=== PATIENT | female | born 1940 | race Caucasian/White ===

== ENCOUNTER 2017-10-30 13:35 | Inpatient (IN) | payer OTHER ==
[~2017-10-30] VITALS: Ht 157.5 cm; Wt 53.1 kg
--- NOTE | 2017-10-30 13:35 | NUR ---
[id number] FROM [facility] FOR SOB PRIOR TO START OF DIALYSIS ASA 162 GIVEN BY EMS. PT DENIES SOB NOW, DENIES CP. A/OX 2, BREATHING EVEN AND UNLABORED. NO DISTRESS NOTED. VITALS STABLE, ONLY TACHYCARDIC. SAFETY AND COMFORT MEASURES IN PLACE. AWAITING MD ORDERS.
--- NOTE | 2017-10-30 15:05 | NUR ---
NEW IV STARTED ON RAC, 20G. BLOOD DRAWN AND SENT TO LAB.
[2017-10-30 15:18] LABS: BASOPHILS % (AUTO) 0.2 % (0.0-2.0); EOSINOPHILS % (AUTO) 1.9 % (0.0-6.0); HEMATOCRIT 34 % (33-45); HEMOGLOBIN 11.5 g/dL (11.5-14.8); LYMPHOCYTES # (AUTO) 1.1 /CMM (0.8-4.8); LYMPHOCYTES % (AUTO) 16.1 % (20.0-44.0); MEAN CORPUSCULAR HEMOGLOBIN 28 PG (26.0-33.0); MEAN CORPUSCULAR HGB CONC 33 g/dl (31.0-36.0); MEAN CORPUSCULAR VOLUME 83 fL (82-100); MONOCYTES # (AUTO) 0.5 /CMM (0.1-1.30); NEUTROPHILS # (AUTO) 4.9 /CMM (1.8-8.9); NEUTROPHILS % (AUTO) 73.8 % (43.0-81.0); PLATELET COUNT (AUTO) 193 /CMM (150-450); RDW COEFFICIENT OF VARIATION 21.9 (11.5-15.0); RED BLOOD CELL COUNT(AUTO) 4.14 MIL/uL (4.0-5.2); WHITE BLOOD COUNT (AUTO) 6.6 K/uL (4.3-11.0)
[2017-10-30 15:31] LABS: CALCIUM, SERUM 9.7 mg/dL (8.5-10.1); CARBON DIOXIDE 25 mmol/L (21-32); CHLORIDE 104 mmol/L (98-107); CREATININE 1.3 mg/dL (0.6-1.3); GLUCOSE 107 mg/dL (74-106); POTASSIUM 5.5 mmol/L (3.5-5.1); SODIUM SERUM 137 mmol/L (136-145); UREA NITROGEN, BLOOD 18 mg/dL (7-18)
[2017-10-30 15:35] LABS: INR 0.97 (0.85-1.15)
[2017-10-30 15:36] LABS: ALANINE AMINOTRANSFERASE 18 U/L (12-78); ALBUMIN 2.9 g/dL (3.4-5.0); ALKALINE PHOSPHATASE 77 U/L (46-116); ASPARTATE AMINOTRANSFERASE 19 U/L (15-37); BILIRUBIN,DIRECT 0.2 mg/dL (0.0-0.2); BILIRUBIN,TOTAL 0.4 mg/dL (0.2-1.0); TOTAL PROTEIN, SERUM 7.4 g/dL (6.4-8.2)
[2017-10-30 15:38] LABS: TROPONIN I < 0.017 ng/mL (0.00-0.056)
[2017-10-30 15:58] LABS: MAGNESIUM 1.6 mg/dL (1.8-2.4); PHOSPHORUS 3.3 mg/dL (2.5-4.9)
[2017-10-30] MEDS ORDERED: SODIUM POLYSTYRENE SULFONATE 15 G/60 ML BOTTLE PO ONE (16:00)
[2017-10-30] MEDS ORDERED: INSULIN REGULAR, HUMAN 100 UNIT/ML 10 ML VIAL IV ONE (16:00)
[2017-10-30] MEDS ORDERED: DEXTROSE 50%-WATER 50 ML DISP.SYRIN IVP ONE (16:00)
[2017-10-30] MEDS ORDERED: ASPIRIN 81 MG TAB.CHEW PO ONE (16:00)
[2017-10-30] MEDS ORDERED: ASPIRIN 81 MG TAB.CHEW ONE (16:17)
[2017-10-30] MEDS ORDERED: SODIUM POLYSTYRENE SULFONATE 15 G/60 ML BOTTLE ONE (16:17)
[2017-10-30] MEDS ORDERED: DEXTROSE 50%-WATER 50 ML DISP.SYRIN ONE (16:17)
[2017-10-30] MEDS ORDERED: INSULIN REGULAR, HUMAN 100 UNIT/ML 10 ML VIAL ONE (16:18)
[2017-10-30] MEDS ORDERED: PANT40TA2 PO (17:02)
[2017-10-30] MEDS ORDERED: LORA1TAB PO (17:02)
--- NOTE | 2017-10-30 17:35 | NUR ---
REPORT GIVEN TO XOCHITL JALLOH FOR JOSE UPON ADMISSION
--- NOTE | 2017-10-30 17:40 | NUR ---
PATIENT REFUSING KAYEXELATE DESPITE NUMEROUS ATTEMPTS.
--- NOTE | 2017-10-30 17:50 | NUR ---
REPORT GIVEN TO XOCHITL JALLOH FOR JOSE UPON ADMISSION.
--- NOTE | 2017-10-30 18:03 | NUR ---
PATIENT TRANSPORTED TO [facility] VIA ACLS PROTOCOL. LORRIE JALLOH TO PROVIDE JOSE.
[2017-10-30 18:15] VITALS: BP 121/62
--- NOTE | 2017-10-30 18:15 | NUR ---
PAIRER INSPECTORSENIOR STOCK PLAN ADMINISTRATOR NOTE PATIENT IS ALERT AND ORIENTED X2, NO FACIAL GRIMACING NOTED AT THIS TIME. NO SOB OR DISTRESS NOTED. IV ON RIGHT AC 20G INTACT AND PATENT. NEEDS REORIENTATION FREQUENTLY. ACCORDING TO DAUGHTER PATIENT IS ON HOSPICE CARE WITH 24 HOUR CAREGIVER, PATIENT DOES HAVE POLST, PER DAUGHTER HOSPICE WILL BE FAXED TO UNIT AND MD TO BE MADE AWARE. NO MD ORDERS AT THIS TIME. PER DIE CUTTER OPERATOR, PATIENT REFUSED KAYEXALATE NUMEROUS ATTEMPTS, MAGNESIUM-1.6. WHEELCHAIR AND PERSONAL OXYGEN AT BEDSIDE FROM HOSPICE. WILL CONTINUE TO MONITOR THROUGHOUT SHIFT
--- NOTE | 2017-10-30 19:05 | NUR ---
WEB SOFTWARE ENGINEER CLOSING NOTE PATIENT RESTING COMFORTABLY AT THIS TIME. NO FACIAL GRIMACING NOTED FOR PAIN. NO SOB OR DISTRESS NOTED. CALL LIGHT WITHIN REACH AT ALL TIMES. SAFETY MEASURES IMPLEMENTED. ALL NURSING CARE NEEDS ATTENDED TO NEEDED. IV INTACT AND PATENT NO REDNESS OR SWELLING NOTED. TELE MONITOR- TACHY-120. NO MD ORDERS AT THIS TIME. WILL ENDORSE TO TOPOGRAPHICAL DRAFTER NURSE FOR JOSE
[2017-10-30] MEDS ORDERED: LORAZEPAM 1 MG TABLET PO PRN (19:30)
[2017-10-30] MEDS ORDERED: MAGNESIUM HYDROXIDE 30 ML UDC PO PRN (20:00)
[2017-10-30] MEDS ORDERED: Z GUARD REMEDY 2 OZ OINT TP PRN (20:00)
[2017-10-30] MEDS ORDERED: ACETAMINOPHEN 325 MG TABLET PO PRN (20:00)
[2017-10-30] MEDS ORDERED: HYDROCODONE/APAP 5/325MG 1 EACH TABLET PO PRN ×2 (20:00→20:30)
[2017-10-30] MEDS ORDERED: ONDANSETRON HCL/PF 4 MG/2 ML VIAL IVP PRN (20:00)
[2017-10-30] MEDS ORDERED: MAG HYDROX/AL HYDROX/SIMETH 30 ML UDC PO PRN (20:00)
[2017-10-30 20:08] VITALS: BP 109/70
[2017-10-30] MEDS: Magnesium 1GM/D5W 100ML PREMIX 100 ML IV SCH ×2 (20:55→21:51)
--- NOTE | 2017-10-30 21:57 | NUR ---
MS/RN RECEIVE PATIENT AT 19:30. DAUGHTER WAS AT BEDSIDE. PATIENT WAS AWAKE, ALERT, ORIENTED, COMFORTABLE, NO C/O PAIN, NO DISTRESS NOTED. ADMISSION DONE, INFORMATIONS WERE PROVIDED BY THE DAUGHTER AND THE PATIENT. PATIENT IS FROM HOME WITH HOSPICE. DR. STRONG IS THE ADMITTING DOCTOR. SPOKE TO DR. STRONG, SHE NEEDS THE POLST OF THE PATIENT. PER DAUGHTER PATIENT HAS POLST AND COPY WAS WITH THE HOSPICE, SHE DOES NOT HAVE COPY BUT PATIENT AND DAUGHTER ARE WILLING TO FILL OUT A NEW POLST. I CALLED HOSPICE PROVIDED BY THE DAUGHTER, [facility], , BUT UNABLE TO OBTAIN POLST IT WAS NOT YET UPLOADED TO THE PATIENT'S CHART. DAUGHTER FILLED OUT A NEW POLST, DR. STRONG MADE AWARE. PER DR. STRONG SHE WILL SIGN IT IN THE MORNING. POLST THEN WAS PLACED IN CHART.
[2017-10-31] VITALS (8 sets, daily range): BP systolic 87–155; BP diastolic 51–73
--- NOTE | 2017-10-31 00:13 | NUR ---
MS/RN PATIENT IS SLEEPING AT THIS TIME, APPEAR COMFORTABLE, NO DISTRESS NOTED, CALL LIGHT IN REACH. WILL MONITOR.
--- NOTE | 2017-10-31 05:00 | NUR ---
MS/RN MORNING CARE DONE, GOOD SKIN CARE RENDERED, TOTAL LINEN CHANGE DONE, PHOTOS TAKEN PER PROTOCOL, REPOSITIONED TO COMFORT. ALL NEEDS ATTENDED AT THIS TIME. WILL CONTINUE TO MONITOR.
[2017-10-31 07:30] LABS: BASOPHILS % (AUTO) 0.7 % (0.0-2.0); CARBON DIOXIDE 26 mmol/L (21-32); CHLORIDE 106 mmol/L (98-107); CREATININE 1.3 mg/dL (0.6-1.3); EOSINOPHILS % (AUTO) 3.2 % (0.0-6.0); GLUCOSE 83 mg/dL (74-106); HEMATOCRIT 32 % (33-45); LYMPHOCYTES # (AUTO) 1.4 /CMM (0.8-4.8); LYMPHOCYTES % (AUTO) 23.1 % (20.0-44.0); MAGNESIUM 2.1 mg/dL (1.8-2.4); MEAN CORPUSCULAR HEMOGLOBIN 32 PG (26.0-33.0); MEAN CORPUSCULAR HGB CONC 34 g/dl (31.0-36.0); MEAN CORPUSCULAR VOLUME 93 fL (82-100); MONOCYTES # (AUTO) 0.7 /CMM (0.1-1.30); MONOCYTES % (AUTO) 10.4 % (2.0-12.0); NEUTROPHILS # (AUTO) 3.9 /CMM (1.8-8.9); NEUTROPHILS % (AUTO) 62.6 % (43.0-81.0); PHOSPHORUS 4.6 mg/dL (2.5-4.9); PLATELET COUNT (AUTO) 183 /CMM (150-450); POTASSIUM 4.7 mmol/L (3.5-5.1); RDW COEFFICIENT OF VARIATION 24.1 (11.5-15.0); RED BLOOD CELL COUNT(AUTO) 3.44 MIL/uL (4.0-5.2); SODIUM SERUM 138 mmol/L (136-145); UREA NITROGEN, BLOOD 18 mg/dL (7-18); WHITE BLOOD COUNT (AUTO) 6.3 K/uL (4.3-11.0)
--- NOTE | 2017-10-31 07:30 | NUR ---
MS RN OPENING NOTE PATIENT RESTING COMFORTABLY AT THIS TIME. NO FACIAL GRIMACING NOTED FOR PAIN. NO SOB OR DISTRESS NOTED. CALL LIGHT WITHIN REACH AND SAFETY MEASURES IMPLEMENTED. 2L/MIN OF OXYGEN VIA NASAL CANNULA. PATIENT LAST RECEIVED HD ON 10/28-SUNDAY, PER ASSISTIVE TECHNOLOGY SPECIALIST RN PATIENT TO RECEIVE HD TODAY. LABS PENDING AT THIS TIME. MAGNESIUM REPLACED ON ASSISTIVE TECHNOLOGY SPECIALIST. POLST TO BE SIGNED BY MD. WILL CONTINUE TO MONITOR THROUGHOUT SHIFT
[2017-10-31] MEDS: PANTOPRAZOLE 40 MG TABLET.DR PO SCH (08:18)
--- NOTE | 2017-10-31 08:30 | NUR ---
RN NOTE POLST SIGNED BY DR. AGUIRRE
--- NOTE | 2017-10-31 08:45 | NUR ---
MS RN NOTE PATIENT REFUSED TO EAT BREAKFAST THIS MORNING.
--- NOTE | 2017-10-31 09:00 | NUR ---
MS RN NOTE RECEIVED CALL FROM SARAI, DAUGHTER IN REGARDS TO PATIENT IF SHE DOES NOT WANT FOOD ON TRAY, SHE HAS ENSURE BOOST CHOCOLATE TID. MADE MD AWARE, ORDER NOTED AND CARRIED OUT.
[2017-10-31] MEDS ORDERED: AMIODARONE 150 MG in IV D5W 100 ML IV ONE (09:30)
[2017-10-31] MEDS ORDERED: AMIODARONE 900 MG in IV D5W 500 ML IV PRN (09:30)
--- NOTE | 2017-10-31 10:24 | NUR ---
RN NOTE PATIENT TRANSFERRED TO ROOM 112-1 YUN. REPORT GIVEN TO YEIMI HENDERSON. PATIENT TRANSFERRED IN STABLE CONDITION. ALL BELONGINGS TRANSFERRED WITH PATIENT TO ROOM. FAMILY MADE AWARE.
[2017-10-31 10:27] LABS: ALBUMIN 2.9 g/dL (3.4-5.0); BILIRUBIN,DIRECT 0.1 mg/dL (0.0-0.2); BILIRUBIN,TOTAL 0.3 mg/dL (0.2-1.0); THYROID STIMULATING HORMONE 2.368 uIU/mL (0.358-3.74); TOTAL PROTEIN, SERUM 6.6 g/dL (6.4-8.2)
--- NOTE | 2017-10-31 10:30 | NUR ---
RN NOTES: REC'D PT FROM FELICIANO RN (3W FLR), TRANSFERRED VIA BED ACCOMPANIED BY RNS & AUTOMATIC MACHINE ATTENDANT. PT A/O X 2 W/ CONFUSION, NOT IN ANY DISTRESS, DENIES ANY PAIN/DISCOMFORT AT THIS TIME. PLACED ON TELEMONITOR, A.FLUTTER W/ HR 121, BP 96/55. HAS R AC G20, SL, PATENT & INTACT W/ NO S/SX OF INFECTION/INFILTRATION NOTED. HAS RCW HD CATH INTACT. BELONGINGS CHECKED BY AUTOMATIC MACHINE ATTENDANT. PROVIDED COMFORT & SAFETY ENVIRONMENT. BED KEPT LOW & IN LOCKED POS. CALL LIGHT PLACED W/IN REACH. WILL CONTINUE TO MONITOR & ATTEND PT NEEDS. PT TRANSFERRED IN YUN FOR REGINA DE JESUS. SARAI DAUGHTER UPDATED.
[2017-10-31] MEDS ORDERED: AMIODARONE 900 MG in IV D5W 482 ML IV PRN (11:30)
--- NOTE | 2017-10-31 11:53 | NUR ---
WOUND CARE CONSULT: PT PRESENTS WITH INTACT DEEP TISSUE INJURY TO SACRUM, RT BUTTOCK SCAR WITH FRAGILE SKIN AND RASH TO PERINEUM, INNER BUTTOCKS, PRESENT ON ADMISSION. LEROY ISOFLEX LOW AIRLOSS BED TO BE PLACED. PT NOTED TO HAVE VERY DRY FLAKY SKIN. RECOMMENDATIONS MADE FOR SKIN PROTECTION AND CARE. DISCUSSED WITH NURSING STAFF. WILL SEE PRN. ODELL IN AGREEMENT WITH PLAN OF CARE. CURRENT MARCELO SCORE IS 16. Addendum: 10/31/17 at 1154 by LUCA MILLER WNDNU Amended: Links added.
[2017-10-31] MEDS ORDERED: MINERAL OIL/PETROLATUM,WHITE 120 GM JAR TP PRN (12:00)
[2017-10-31] MEDS: ENSURE ENLIVE CHOC 237 ML CAN PO SCH ×2 (13:40→16:52)
[2017-10-31] MEDS: CLOTRIMAZOLE 1% 15 GM TUBE TP SCH ×2 (13:44→16:52)
--- NOTE | 2017-10-31 18:27 | NUR ---
RN CLOSING NOTES: NO ACUTE CHANGES NOTED W/IN SHIFT. PT STILL A/O X 2 W/ CONFUSION AT TIMES, NOT IN ANY DISTRESS, DENIES ANY PAIN/DISCOMFORT AT THIS TIME. ON NC AT 2LPM, NO SOB. ON TELEMONITOR, STILL CONTROLLED/ UNCONTROLLED A.FLUTTER. INSERTED NEW IV LINE R HAND G22, PATENT & INTACT W/ NO S/SX OF INFECTION/INFILTRATION NOTED, ONGOING AMIODRIP X 0.5 MG/HR INFUSING WELL. RCW HD CATH KEPT INTACT. KEPT WELL RESTED. NEEDS ATTENDED. HD DONE TODAY W/ 2L OUTPUT. UNABLE TO COLLECT URINE FOR CREATININE CLEARANCE TEST. BED KEPT LOW & IN LOCKED POS. CALL LIGHT PLACED W/IN REACH. WILL ENDORSED TO PM RN FOR JOSE. Addendum: 10/31/17 at 1842 by BEATRIZ PEREZ RN ADDENDUM: UNABLE TO COLLECT URINE FOR CREATININE CLEARANCE TEST. PT IS OLIGURIC.
--- NOTE | 2017-10-31 19:30 | NUR ---
YUN RN INITIAL NOTE PT RECEIVED AWAKE AND ALERT IN BED. ON ROOM AIR AND SATURATING WELL. ABLE TO MAKE NEEDS KNOWN. NO C/O PAIN OR DISCOMFORT NOTED. IV R HAND #22 CLEAN, DRY AND PATENT WITH FLUIDS INFUSING. TELE- AFLUTTER 104. CALL LIGHT WITHIN REACH. WILL CONTINUE TO MONITOR.
[2017-11-01] VITALS (7 sets, daily range): BP systolic 91–179; BP diastolic 43–78
[2017-11-01] MEDS: ZOLPIDEM TARTRATE 5 MG TABLET PO PRN (00:49)
--- NOTE | 2017-11-01 07:56 | NUR ---
ICU/RN INITIAL NOTES,AM RECEIVED REPORT FROM NIGHT NURSE. PT RESTING COMFORTABLY IN BED. PT ALERT, AWAKE, FOLLOWS COMMANDS. PT A.FLUTTER ON TELE. PT ON ROOM AIR, NO DISTRESS NOTED. PIV PATENT AND INTACT. ALL NEEDS WILL BE MET, SAFETY MEASURES TAKEN, BED IN LOW POSITION, SIDE RAILS UP, CALL LIGHT WITHIN REACH.
[2017-11-01] MEDS: PANTOPRAZOLE 40 MG TABLET.DR PO SCH (08:18)
[2017-11-01] MEDS: CLOTRIMAZOLE 1% 15 GM TUBE TP SCH ×2 (08:20→17:24)
[2017-11-01] MEDS: ENSURE ENLIVE CHOC 237 ML CAN PO SCH ×3 (08:37→17:24)
--- NOTE | 2017-11-01 09:10 | NUR ---
ICU/RN: REPORT ENDORSED TO YEIMI COHEN FOR JOSE
[2017-11-01] MEDS: METOPROLOL TARTRATE 25 MG TABLET PO SCH ×2 (12:11→20:50)
--- NOTE | 2017-11-01 19:03 | NUR ---
RN YUN INITIAL NOTE RECEIVED PT IN BED AWAKE, AOX3, ABLE TO VERBALIZE NEEDS, ON RA, WELL SHAHBAZ, SAT 98%. CLEAN AND DRY CONTINENT FOR B&B,ALL NEEDS ATTENDED CL WNR, PER AM RN PT WAS FOR DC TODAY, POSPONDED TO TOMORROW. WILL ENDORSE TO AM SHIFT RN TO F/U.
--- NOTE | 2017-11-01 21:13 | NUR ---
2100 LOPRESSOR 25MG HELD BP TRENDING LOW 92/52, 98
[2017-11-02] VITALS: BP 110/53
[2017-11-02] MEDS: ZOLPIDEM TARTRATE 5 MG TABLET PO PRN (01:08)
[2017-11-02 04:00] VITALS: BP_SYST 104; BP_DIAS 62; BP_DIAS 73
--- NOTE | 2017-11-02 06:29 | NUR ---
RN YUN CLOSING NOTE ENDORSED PT IN BED AWAKE, AOX3, ABLE TO VERBALIZE NEEDS, ON RA, WELL SHAHBAZ, SAT 98%. CLEAN AND DRY , RECEIVED REPORT PT WAS CONTINENT, PT INCONTINENT THROUGH SHIFT. ALL NEEDS ATTENDED CL WNR, PER AM RN PT WAS FOR DC TODAY, WILL ENDORSE TO AM SHIFT RN TO F/U.
[2017-11-02 06:54] LABS: BASOPHILS % (AUTO) 0.5 % (0.0-2.0); EOSINOPHILS % (AUTO) 3.8 % (0.0-6.0); HEMATOCRIT 30 % (33-45); HEMOGLOBIN 10.7 g/dL (11.5-14.8); LYMPHOCYTES # (AUTO) 1.5 /CMM (0.8-4.8); MEAN CORPUSCULAR HEMOGLOBIN 34 PG (26.0-33.0); MEAN CORPUSCULAR HGB CONC 36 g/dl (31.0-36.0); MEAN CORPUSCULAR VOLUME 94 fL (82-100); MONOCYTES # (AUTO) 0.6 /CMM (0.1-1.30); MONOCYTES % (AUTO) 9.8 % (2.0-12.0); NEUTROPHILS # (AUTO) 3.5 /CMM (1.8-8.9); NEUTROPHILS % (AUTO) 60.9 % (43.0-81.0); PLATELET COUNT (AUTO) 184 /CMM (150-450); RDW COEFFICIENT OF VARIATION 23.8 (11.5-15.0); WHITE BLOOD COUNT (AUTO) 5.8 K/uL (4.3-11.0)
[2017-11-02 07:13] LABS: ALANINE AMINOTRANSFERASE 15 U/L (12-78); ALBUMIN 2.7 g/dL (3.4-5.0); ALKALINE PHOSPHATASE 69 U/L (46-116); ASPARTATE AMINOTRANSFERASE 22 U/L (15-37); BILIRUBIN,TOTAL 0.3 mg/dL (0.2-1.0); CALCIUM, SERUM 8.6 mg/dL (8.5-10.1); CARBON DIOXIDE 30 mmol/L (21-32); CHLORIDE 101 mmol/L (98-107); CREATININE 1.3 mg/dL (0.6-1.3); GLUCOSE 89 mg/dL (74-106); MAGNESIUM 1.6 mg/dL (1.8-2.4); PHOSPHORUS 2.7 mg/dL (2.5-4.9); POTASSIUM 4.7 mmol/L (3.5-5.1); SODIUM SERUM 139 mmol/L (136-145); TOTAL PROTEIN, SERUM 6.8 g/dL (6.4-8.2); UREA NITROGEN, BLOOD 29 mg/dL (7-18)
--- NOTE | 2017-11-02 07:30 | NUR ---
YUN RN INITIAL NOTES RECEIVED PATIENT SLEEPING IN BED, NO SIGNS OF DISTRESS, AOX2, CONTINUES TO BE AFLUTTER ON MONITOR 96 HR, IV R HAND 22G, CLEAN AND PATENT, BED IN LOW AND LOCKED POSITION CALL LIGHT WITHIN REACH, WILL CONTINUE TO MONITOR.
[2017-11-02 08:00] VITALS: BP 98/56
[2017-11-02 09:00] VITALS: BP 98/56
[2017-11-02] MEDS: METOPROLOL TARTRATE 25 MG TABLET PO SCH (09:00)
[2017-11-02] MEDS: PANTOPRAZOLE 40 MG TABLET.DR PO SCH (09:23)
[2017-11-02] MEDS: CLOTRIMAZOLE 1% 15 GM TUBE TP SCH (09:24)
--- NOTE | 2017-11-02 10:26 | NUR ---
WINCH DRIVER NOTES PER DR TIMOTHY WOODRUFF TO STOP MAGNESIUM ORDERS, PATIENT WILL RECEIVE HD BEFORE DC AND WILL START HOSPICE CARE.
[2017-11-02] MEDS ORDERED: Magnesium 1GM/D5W 100ML PREMIX 100 ML IV SCH (10:30)
[2017-11-02] MEDS: ENSURE ENLIVE CHOC 237 ML CAN PO SCH ×2 (11:21→12:28)
[2017-11-02] MEDS ORDERED: METO25TA20 PO (11:37)
[2017-11-02] MEDS ORDERED: LACT-54 PO (11:37)
--- NOTE | 2017-11-02 12:00 | NUR ---
KEELER POLYGRAPH OPERATOR NOTES PATIENT DC ORDERS GIVEN BY DR STEIN, PATIENT TO HAVE HD TOMORROW, ALL DC PAPERWORK DONE, DC TEACHING DONE, PRESCRIBED MEDICATION TEACHING DONE, BELONGINGS LIST SIGNED, PICTURES TAKEN AND PLACED IN CHART. PATIENT WILL HAVE HOSPICE CARE AFTER DC WITH [facility], ARRANGED TO MEET HER AT HOME, AMBULANCE FOR PICKUP 1200, IV DC TIP INTACT, ALL QUESTIONS ANSWERED ALL CONCERNS ADDRESSED
== END 2017-11-02 12:30 | disposition hospice, home (50) | DRG 308 ==
LOC: ER 13:36 → TELE 17:38 → MED 21:21 → TELE-TD 10-31 09:53 → MEDSG1 11-02 08:36
PROC: 5A1D70Z Performance of Urinary Filtration, Intermittent, Less than 6 Hours Per Day (ICD-10-PCS; principal; 2017-10-31)
DX: I48.92 Unspecified atrial flutter (principal); N18.6 End stage renal disease; I50.22 Chronic systolic (congestive) heart failure; I13.2 Hypertensive heart and chronic kidney disease with heart failure and with stage 5 chronic kidney disease, or end stage renal disease; I25.10 Atherosclerotic heart disease of native coronary artery without angina pectoris; I48.91 Unspecified atrial fibrillation; I70.90 Unspecified atherosclerosis; E78.5 Hyperlipidemia, unspecified; Z85.038 Personal history of other malignant neoplasm of large intestine; Z99.2 Dependence on renal dialysis; E83.42 Hypomagnesemia; Z95.5 Presence of coronary angioplasty implant and graft; J44.9 Chronic obstructive pulmonary disease, unspecified; M54.5 Low back pain; G89.29 Other chronic pain; E87.5 Hyperkalemia; D64.9 Anemia, unspecified; F03.90 Unspecified dementia, unspecified severity, without behavioral disturbance, psychotic disturbance, mood disturbance, and anxiety; K21.9 Gastro-esophageal reflux disease without esophagitis
CPT/HCPCS: 36415; 71045-TC; 80048-TC; 80053-TC; 80076-TC; 82728-TC; 82962-TC; 83540-TC; 83735-TC; 84100-TC; 84439-TC; 84443-TC; 84484-TC; 85025-TC; 85730-TC; 87081-TC; 90935-TC; 93307-TC; 94799-TC; A4606; A6402; J0282; J1815; J3475; J7060; Z7610